=== PATIENT | male | born 1975 | race Caucasian/White ===

== ENCOUNTER → 2017-10-13 12:36 | Outpatient (POV) | payer OTHER, SELFPAY | PROVIDERS: PCP Family Medicine; Visit Provider Nurse Practitioner Acute Care | DX: Z00.00 Encounter for general adult medical examination without abnormal findings (principal) ==

== ENCOUNTER 2017-11-24 08:54 | Day surgery (SDC) | payer OTHER, SELFPAY ==
[2017-11-18 12:52] VITALS: BMI 30.5
[2017-11-24] VITALS (7 sets, daily range): BP systolic 109–171; BP diastolic 70–87; PULSE 75–98; RESP 16–20; TEMP 36.2–36.6; O2SAT 98–100
--- NOTE | 2017-11-24 09:29 | HMH.ANESCL ---
[facility] Anesthesia Checklist - Patient Identification Patient Identification: Arm Band, Verbal (Name & ) - Structural Data Admitted From: Home Planned Operative Procedure/s: colonoscopy Consent for Planned Operative Procedure(s) Verified: Yes Verified Documents: Surgical Consent, History and Physical - NPO Status Verified Time NPO: 00:00 - Chart Verification Results Verified: CBC, BMP - Additional verifications Patient : No Anesthesia Reactions: No Hx Blood Transfusions: No Blood Transfusion Reaction: No Cephalosporin Allergy: No Previous Colonoscopy: Yes - Cardiovascular Assessment Heart Sounds: S1 & S2 Pulse Strength: Baseline Pulse Rhythm: Regular Peripheral Edema: No - Airway Assessment C-Spine Mobility Assessed: Yes TMJ Mobility Assessed: Yes Dentition: Good Dentition - Neurological Assessment Level of Consciousness: Awake, Alert, Appropriate Hx Seizures: No Numbness or tingling in extremities: No - Anesthesia Plan Anesthesia Risk discussed: Yes Anesthesia Plan: Verified ASA Class: I Anesthesia Type: MAC [facility] Anesthesia HX I have reviewed the patient's past medical history: Yes Medical History: Denies:: Diabetes Mellitus Type 1, Diabetes Mellitus Type 2, Internal Pacemaker, Lung Disease, Seizures Other Surgeries: Yes: Other (fees). No: Pacemaker
--- NOTE | 2017-11-24 09:57 | HMH.PROC ---
[facility] Procedure Note Procedure Note:: Upper Endoscopy Procedure Report: Esophagogastroduodenoscopy with cold biopsies and TTS balloon dilation Endoscopost: Kevin Moe II, MD Referring Physician: Luis Martinez MD Date of Procedure: November 24, 2017 Equipment: Olympus GIF 180 standard upper endoscope Sedation: MAC sedation Indications: Mr. Ramon is a 42-year-old gentleman who is here for diagnostic upper endoscopy. He has had dysphagia to solid foods over the last 2-3 years (i.e. hot dogs). He reports no heartburn, reflux or dyspepsia. He has had some mild gassiness and bloating. He also had more significant right lower quadrant abdominal pain with some bright red rectal bleeding in June 2007. He reports no nausea, indigestion or dyspepsia. He reports no melena or weight loss. This is his first upper endoscopy. Procedure: Prior to the procedure, a history and physical exam was performed, and patient's medications and allergies were reviewed. The risks, benefits and alternatives of the sedation and procedure were discussed with the patient. All questions were answered and informed consent was obtained. The patient was brought to the procedure room. Patient identification and proposed procedure were verified by the physician and the nurse. The patient was placed in a left lateral decubitus position and the scope was passed under direct vision. Throughout the procedure, the patient's blood pressure, pulse, and oxygen saturations were monitored continuously. The upper GI endoscopy was accomplished without difficulty. The patient tolerated the procedure well. Findings: The scope was passed directly into the upper esophagus and advanced to the third portion of the duodenum. The post bulbar duodenum and duodenal bulb were normal with normal mucosa and conniventes. Cold biopsies were taken from the post bulbar duodenum to rule out celiac disease. The scope was withdrawn through a normal duodenal bulb and pylorus into the stomach. There was some mild linear erythema of the antrum and body of the stomach with bile reflux. The remainder of the antrum, body and fundus of the stomach were grossly normal. Upon retroflexion there was a very small 1-2 cm sliding hiatal hernia. 2 biopsies were taken in the antrum and along the lesser curvature for histology to rule out gastritis and/or H pylori. The scope was then withdrawn into the esophagus. There was a distal Schatzki's ring. The Schatzki's ring was dilated to 60 [place]/20 mm with a TTS hydrostatic balloon. There was LA classification grade A-B reflux esophagitis. There was a single tongue of salmon colored mucosa that was inspected using NBI (narrowband imaging) and biopsies were obtained to rule out short segment Smart's esophagus. The remainder of the esophageal mucosa was normal. Impression: 1. Schatzki's ring dilated to 20 mm 2. Grade A-B LA classification reflux esophagitis with very small sliding hiatal hernia and possible tongue of Smart's (short segment) 3. Very mild linear reactive gastritis Plan: I will follow up the biopsies. I would recommend omeprazole 40 mg p.o. daily ?3 months. If the patient has Smart's esophagus/intestinal metaplasia, I would reduce omeprazole to 20 mg after 3 months but continue maintenance therapy. I will proceed with colonoscopy.
--- NOTE | 2017-11-24 10:10 | P.PCN_ITS ---
[facility] [place] Procedure Note Procedure Note:: Upper Endoscopy Procedure Report: Esophagogastroduodenoscopy with cold biopsies and TTS balloon dilation Endoscopost: Kevin Moe II, MD Referring Physician: Luis Martinez MD Date of Procedure: November 24, 2017 Equipment: Olympus GIF 180 standard upper endoscope Sedation: MAC sedation Indications: Mr. Ramon is a 42-year-old gentleman who is here for diagnostic upper endoscopy. He has had dysphagia to solid foods over the last 2-3 years ( i.e. hot dogs). He reports no heartburn, reflux or dyspepsia. He has had some mild gassiness and bloating. He also had more significant right lower quadrant abdominal pain with some bright red rectal bleeding in June 2007. He reports no nausea, indigestion or dyspepsia. He reports no melena or weight loss. This is his first upper endoscopy. Procedure: Prior to the procedure, a history and physical exam was performed, and patient' s medications and allergies were reviewed. The risks, benefits and alternatives of the sedation and procedure were discussed with the patient. All questions were answered and informed consent was obtained. The patient was brought to the procedure room. Patient identification and proposed procedure were verified by the physician and the nurse. The patient was placed in a left lateral decubitus position and the scope was passed under direct vision. Throughout the procedure, the patient's blood pressure, pulse, and oxygen saturations were monitored continuously. The upper GI endoscopy was accomplished without difficulty. The patient tolerated the procedure well. Findings: The scope was passed directly into the upper esophagus and advanced to the third portion of the duodenum. The post bulbar duodenum and duodenal bulb were normal with normal mucosa and conniventes. Cold biopsies were taken from the post bulbar duodenum to rule out celiac disease. The scope was withdrawn through a normal duodenal bulb and pylorus into the stomach. There was some mild linear erythema of the antrum and body of the stomach with bile reflux. The remainder of the antrum, body and fundus of the stomach were grossly normal. Upon retroflexion there was a very small 1-2 cm sliding hiatal hernia. 2 biopsies were taken in the antrum and along the lesser curvature for histology to rule out gastritis and/or H pylori. The scope was then withdrawn into the esophagus. There was a distal Schatzki's ring. The Schatzki's ring was dilated to 60 [place]ian/20 mm with a TTS hydrostatic balloon. There was LA classification grade A-B reflux esophagitis. There was a single tongue of salmon colored mucosa that was inspected using NBI (narrowband imaging) and biopsies were obtained to rule out short segment Smart's esophagus. The remainder of the esophageal mucosa was normal. Impression: 1. Schatzki's ring dilated to 20 mm 2. Grade A-B LA classification reflux esophagitis with very small sliding hiatal hernia and possible tongue of Smart's (short segment) 3. Very mild linear reactive gastritis Plan: I will follow up the biopsies. I would recommend omeprazole 40 mg p.o. daily ?3 months. If the patient has Smart's esophagus/intestinal metaplasia, I would reduce omeprazole to 20 mg after 3 months but continue maintenance therapy. I will proceed with colonoscopy.
--- NOTE | 2017-11-24 10:26 | HMH.PROC ---
[facility] Procedure Note Procedure Note:: Colonoscopy Procedure Report: Colonoscopy Endoscopist: Kevin Moe II, MD Referring physician: Luis Martinez MD Date of Procedure: November 24, 2017 Equipment: Olympus 180 variable stiffness pediatric colonoscope Sedation: MAC sedation Indication: Mr. Ramon is a 42-year-old gentleman who is here for diagnostic colonoscopy. The patient does state that he had right lower quadrant abdominal pain that began in June 2017. He also noted some bright red blood with his bowel movement for 3 days. He has noted some minor bloating and gassiness. He reports sporadic diarrhea and he began using Citrucel a couple of months ago which has helped. He reports no family history of colon cancer. This is his first colonoscopy. Procedure: Prior to the procedure, a history and physical exam was performed, and patient's medications and allergies were reviewed. The risks, benefits and alternatives of the sedation and procedure were discussed with the patient. All questions were answered and informed consent was obtained. The patient was brought to the procedure room. Patient identification and proposed procedure were verified by the physician and the nurse. The patient was placed in a left lateral decubitus position and the scope was passed under direct vision. Throughout the procedure, the patient's blood pressure, pulse, and oxygen saturations were monitored continuously. The colonoscopy was accomplished without difficulty. The patient tolerated the procedure well. Findings: On digital rectal examination there was normal rectal tone. There were no external hemorrhoids. The prostate was 1-2+, smooth, soft, symmetric without nodules. The colonoscope was introduced through the anal canal to the rectum and advanced to the cecum. The ileocecal valve and appendiceal orifice were identified. The scope was advanced a short distance into the ileum which appeared grossly normal. The scope was then withdrawn into the colon. The cecum, ascending, transverse, descending, sigmoid and rectum were grossly normal. There were no mucosal abnormalities identified. Upon retroflexion within the rectum there were grade 1 internal hemorrhoids. Impression: 1. Normal colonoscopy with intubation of the terminal ileum 2. Grade 1 internal hemorrhoids Plan: I would encourage continuation of fiber bulk supplementation. I do feel that his bleeding was the result of internal hemorrhoids. I do feel that his right sided abdominal pain is secondary to obstipation. We will discuss dietary measures and treatment options. The patient will not require screening colonoscopy again for 10 years/age 52 by ACS guidelines.
--- NOTE | 2017-11-24 10:29 | P.PCN_ITS ---
[facility] Procedure Note Procedure Note:: Colonoscopy Procedure Report: Colonoscopy Endoscopist: Kevin Moe II, MD Referring physician: Luis Martinez MD Date of Procedure: November 24, 2017 Equipment: Olympus 180 variable stiffness pediatric colonoscope Sedation: MAC sedation Indication: Mr. Ramon is a 42-year-old gentleman who is here for diagnostic colonoscopy. The patient does state that he had right lower quadrant abdominal pain that began in June 2017. He also noted some bright red blood with his bowel movement for 3 days. He has noted some minor bloating and gassiness. He reports sporadic diarrhea and he began using Citrucel a couple of months ago which has helped. He reports no family history of colon cancer. This is his first colonoscopy. Procedure: Prior to the procedure, a history and physical exam was performed, and patient' s medications and allergies were reviewed. The risks, benefits and alternatives of the sedation and procedure were discussed with the patient. All questions were answered and informed consent was obtained. The patient was brought to the procedure room. Patient identification and proposed procedure were verified by the physician and the nurse. The patient was placed in a left lateral decubitus position and the scope was passed under direct vision. Throughout the procedure, the patient's blood pressure, pulse, and oxygen saturations were monitored continuously. The colonoscopy was accomplished without difficulty. The patient tolerated the procedure well. Findings: On digital rectal examination there was normal rectal tone. There were no external hemorrhoids. The prostate was 1-2+, smooth, soft, symmetric without nodules. The colonoscope was introduced through the anal canal to the rectum and advanced to the cecum. The ileocecal valve and appendiceal orifice were identified. The scope was advanced a short distance into the ileum which appeared grossly normal. The scope was then withdrawn into the colon. The cecum , ascending, transverse, descending, sigmoid and rectum were grossly normal. There were no mucosal abnormalities identified. Upon retroflexion within the rectum there were grade 1 internal hemorrhoids. Impression: 1. Normal colonoscopy with intubation of the terminal ileum 2. Grade 1 internal hemorrhoids Plan: I would encourage continuation of fiber bulk supplementation. I do feel that his bleeding was the result of internal hemorrhoids. I do feel that his right sided abdominal pain is secondary to obstipation. We will discuss dietary measures and treatment options. The patient will not require screening colonoscopy again for 10 years/age 52 by ACS guidelines.
== END 2017-11-24 11:18 | disposition home or self-care (01) ==
LOC: OUTP 08:55
PROVIDERS: Family Provider Family Medicine; PCP Family Medicine; Visit Provider Internal Medicine Gastroenterology
PROC: 0DJ08ZZ Inspection of Upper Intestinal Tract, Via Natural or Artificial Opening Endoscopic (ICD-10-PCS; CPT 43235; principal; 2017-11-24 10:00)
DX: K22.2 Esophageal obstruction (principal); K44.9 Diaphragmatic hernia without obstruction or gangrene; K21.0 Gastro-esophageal reflux disease with esophagitis; K29.60 Other gastritis without bleeding; K64.0 First degree hemorrhoids
CPT/HCPCS: 43239; 43249; 45378; C1726; J2704

== ENCOUNTER → 2021-07-19 14:25 | Outpatient (CLI) | payer OTHER, SELFPAY ==
[2021-07-19 14:36] LABS: Coronavirus 19, PCR Not Detected (NotDetected); Influenza A, PCR Not Detected (NotDetected); Influenza B, PCR Not Detected (NotDetected)
== END ==
PROVIDERS: PCP Family Medicine; Visit Provider Nurse Practitioner
DX: Z20.822 Contact with and (suspected) exposure to COVID-19 (principal)
CPT/HCPCS: C9803; U0003; U0005

== ENCOUNTER 2025-03-17 12:04 | Day surgery (SDC) | payer OTHER, SELFPAY ==
[2025-03-16 14:14] VITALS: BMI 33.2
[2025-03-17 12:19] VITALS: BP 132/79; PULSE 74; RESP 18; TEMP 36.6; O2SAT 100
[2025-03-17] MEDS: LACTATED RINGERS 1000ML 1,000 ML 50 ML IV (12:31)
--- NOTE | 2025-03-17 12:44 | P.PNANES_ITS ---
[facility] Disclaimer: The information contained in this section may have been updated after the patient was seen, as this information can be updated by other users. Medical History GERD (gastroesophageal reflux disease) Pharyngitis Sore throat Surgical History H/O nasal septoplasty History of colonoscopy Family History Other Heart disease Social History Smoking Status: Never smoker alcohol intake: never substance use type: unknown current occupational status: employed Travel in the last 8 weeks?: None caffeine: No [facility] Anesthesia Checklist Patient Identification Patient Identification: Arm Band and Verbal (Name & ) Structural Data Admitted From: Home Planned Operative Procedure/s: EGD Consent for Planned Operative Procedure(s) Verified: Yes Verified Documents: Surgical Consent and History and Physical NPO Status Verified Time NPO: 00:00 Additional verifications Anesthesia Reactions: No Hx Blood Transfusions: No Blood Transfusion Reaction: No Airway Assessment Mallampati Score:: Class I Dentition: Good Dentition Neurological Assessment Level of Consciousness: Awake, Alert and Appropriate Hx Seizures: No Anesthesia Plan Anesthesia Risk discussed: Yes Anesthesia Plan: Verified ASA Class: I Anesthesia Type: MAC
--- NOTE | 2025-03-17 13:25 | EXP.HP ---
History of Present Illness *Admission Date: 03/17/25 *Reason for visit:: Dysphagia *History of present illness: Mr. Ramon is a 49-year-old gentleman who is here for diagnostic EGD secondary to dysphagia. The examination is deemed medically necessary for upper endoscopy. The patient has been seen, interviewed and examined prior to the procedure by both myself and the anesthesia provider. [facility] Disclaimer: The information contained in this section may have been updated after the patient was seen, as this information can be updated by other users. Medical History GERD (gastroesophageal reflux disease) Pharyngitis Sore throat Surgical History H/O nasal septoplasty History of colonoscopy Family History Other Heart disease Social History (Updated 03/17/25 @ 12:44 by Bia Enrique CRNA) Smoking Status: Never smoker alcohol intake: never substance use type: unknown current occupational status: employed Travel in the last 8 weeks?: None caffeine: No Have you lived/traveled outside [place] in past 30 days?: No Contact w/someone who lives/traveled outside [place] past 30 days?: No Exposure to someone with infectious disease in past 14 days?: No Do you have a fever (greater than 100.4 F or 38 C)?: No Have you tested positive for COVID-19?: No Exposed to someone with COVID-19 in past 14 days?: No Do you have a sore throat?: No Do you have a cough?: No Do you have any weakness?: No Are you experiencing any nausea/vomitting?: No Do you have any diarrhea?: No Are you experiencing any unusual bleeding?: No Do you have any muscle aches/pain?: No Do you have any abdominal pain?: No Are you experiencing loss of taste or smell?: No Review of Systems Review of Systems Review of systems (narrative): Negative *Cardiovascular Comments: Negative *Gastrointestinal Comments: Negative *Genitourinary Comments: Negative *Musculoskeletal Comments: Negative *Neurologic Comments: Negative Meds Home Medications and Allergies Home Medications ?Medication ?Instructions ?Recorded ?Confirmed ?Type cetirizine 10 mg tablet 10 mg PO DAILY 02/15/25 03/17/25 History pantoprazole 40 mg tablet,delayed 40 mg PO DAILY 02/15/25 03/17/25 History release New Prescriptions to Start Prescriptions: Allergies Allergy/AdvReac Type Severity Reaction Status Date / Time shellfish derived Allergy Severe Anaphylaxis Verified 03/17/25 12:18 Exam Data for Last 24 hours Vital signs and Labs for Last 24 Hours: Temp Pulse Resp BP Pulse Ox O2 Del Method 97.8 F 74 18 132/79 100 Room Air 03/17/25 12:19 03/17/25 12:19 03/17/25 12:19 03/17/25 12:19 03/17/25 12:19 03/17/25 12:19 I & O for Last 24 hours: Intake & Output 03/14/25 03/15/25 03/16/25 03/17/25 23:59 23:59 23:59 23:59 Weight 245 lb *Routine HEENT Exam Head: Present normocephalic Eye: Present EOMI and PERRL ENT: Present mucous membranes moist *Routine Neck Exam Neck: Present supple *Routine Respiratory Exam Respiratory: Present CTA bilaterally *Routine Cardiovascular Exam Cardiovascular: Present RRR *Routine Abdominal Exam Abdominal: Present soft and normoactive bowel sounds; Absent tenderness *Routine Rectal Exam Rectal:: deferred *Routine Genitalia Exam Genitalia:: deferred *Routine Extremities Exam Extremities: Absent cyanosis, clubbing or edema *Routine Skin Exam Skin: Present warm; Absent rash *Routine Neurological Exam Neurological: Present alert and oriented X3 Assessment and Plan *Assessment and plan (1) Dysphagia: Status: Acute Category: Medical Code(s): R13.10 - Dysphagia, unspecified (2) GERD (gastroesophageal reflux disease): Status: Acute Category: Medical Code(s): K21.9 - Gastro-esophageal reflux disease without esophagitis (3) Reflux esophagitis: Status: Acute Category: Medical Code(s): K21.00 - Gastro-esophageal reflux disease with esophagitis, without bleeding Plan A/P: 1. Dysphagia is the preprocedural diagnosis. The patient will be anesthetized/sedated using MAC sedation. The patient has been seen and examined. Cardiac and lung assessment prior to the examination is stable. Proceed with planned EGD.
--- NOTE | 2025-03-17 13:36 | P.PCN_ITS ---
[facility] Procedure Note Date: 03/17/25 Time: 13:46 Procedure Note:: Upper Endoscopy Procedure Report: Esophagogastroduodenoscopy with cold biopsies and TTS balloon dilation Endoscopost: Kevin Moe II, MD Referring Physician: Luis Bartlett M.D. Date of Procedure: March 17, 2025 Equipment: Olympus GIF 190 standard upper endoscope Sedation: MAC sedation Indications: Mr. Ramon is a 49-year-old gentleman who is here for diagnostic/therapeutic upper endoscopy. He does have some intermittent dysphagia to solid foods. He also has had some throat soreness, itching and discomfort. He will have occasional throat clearing and coughing from this. He reports no globus sensation. He did have an EGD with me in November 2017 and had a small hiatal hernia, grade B (LA classification) reflux esophagitis and some mild chronic gastritis. Biopsies did not show Smart's esophagus. The patient has been on pantoprazole now for more than a month and his reflux has improved. Procedure: Prior to the procedure, a history and physical exam was performed, and patient's medications and allergies were reviewed. The risks, benefits and alternatives of the sedation and procedure were discussed with the patient. All questions were answered and informed consent was obtained. The patient was brought to the procedure room. Patient identification and proposed procedure were verified by the physician and the nurse. The patient was placed in a left lateral decubitus position and the scope was passed under direct vision. Throughout the procedure, the patient's blood pressure, pulse, and oxygen saturations were monitored continuously. The upper GI endoscopy was accomplished without diff iculty. The patient tolerated the procedure well. Findings: The scope was passed directly into the upper esophagus and advanced to the fourth portion of duodenum and proximal jejunum. A cold biopsy was taken from the 2nd and 3rd portion of the duodenum for disaccharidase assay. The proximal jejunum, post bulbar duodenum, ampulla and duodenal bulb were normal with normal mucosa and conniventes. The scope was withdrawn through a normal duodenal bulb and pylorus into the stomach. There was some bile reflux with mild linear reactive gastropathy of the antrum. The body and fundus of the stom ach were normal. Cold biopsies were taken from the antrum. Upon retroflexion there was a very small sliding 1 to 2 cm hiatal hernia. The scope was then withdrawn into the esophagus. There was no evidence of reflux esophagitis or Smart's. There was a distal fibrotic Schatzki's ring. There were tertiary contractions and evidence of mild esophageal dysmotility. The entire esophagus was dilated to 60 [place]an/20 mm with shattering of the Schatzki's ring. There was some mild resistance at the cricopharyngeus. The remainder of the esophageal mucosa was normal. Impression: 1. Cricopharyngeal spasm status post dilation to 20 mm 2. Schatzki's ring status post dilation to 20 mm 3. Nonerosive GERD with mild esophageal dysmotility and very small sliding 1 to 2 cm hiatal hernia 4. Bile reflux with mild linear reactive gastropathy of antrum Plan: I will follow-up the biopsies and disaccharidase assay. The patient's dysphagia is related to the Schatzki's ring. I do feel that his throat issues may be related to the cricopharyngeal spasm. I will discuss the findings with the patient and family.
[2025-03-17 13:46] VITALS: BP 138/88; PULSE 81; RESP 17; TEMP 36.7; O2SAT 93
[2025-03-17 13:56] VITALS: BP 136/93; PULSE 72; RESP 18; TEMP 36.7; O2SAT 100
[2025-03-17 14:06] VITALS: BP 129/87; PULSE 72; RESP 18; TEMP 36.7; O2SAT 99
[2025-03-17 14:16] VITALS: BP 130/89; PULSE 71; RESP 18; TEMP 36.7; O2SAT 99
[2025-03-22 16:12] LABS: Interpretation Notes (.); Lactase 27.38 (>/= 14.0); Maltase 244.15 (>/= 110.0); Palatinase 14.41 (>/= 8.5); Reference Notes (.); Sucrase 62.58 (>/= 25.0)
== END 2025-03-17 14:32 | disposition home or self-care (01) ==
PROVIDERS: PCP Internal Medicine Adolescent Medicine; Visit Provider Internal Medicine Gastroenterology
PROC: 0DJ08ZZ Inspection of Upper Intestinal Tract, Via Natural or Artificial Opening Endoscopic (ICD-10-PCS; CPT 43239; principal; 2025-03-17 13:30)
DX: K22.2 Esophageal obstruction (principal); K21.00 Gastro-esophageal reflux disease with esophagitis, without bleeding; E78.70 Disorder of bile acid and cholesterol metabolism, unspecified; M62.838 Other muscle spasm; K44.9 Diaphragmatic hernia without obstruction or gangrene; K22.4 Dyskinesia of esophagus; K31.89 Other diseases of stomach and duodenum; Z79.899 Other long term (current) drug therapy; Z91.013 Allergy to seafood
CPT/HCPCS: 43239; 43249; 82657; C1726; J2003; J2704; J7120